=== PATIENT | male | born 1940 | race Caucasian/White ===

== ENCOUNTER 2023-07-16 06:02 | Day surgery (SDC) | payer MEDICARE, SELFPAY ==
[2023-07-11 13:05] VITALS: BMI 27.5
[2023-07-16] VITALS (9 sets, daily range): BP systolic 89–112; BP diastolic 52–65; BMI 27.4
--- NOTE | 2023-07-16 07:09 | ITS.CL.CATH ---
[facility] - Catheterization
Cardiac Catheterization
Procedure Report:
CARDIAC CATHETERIZATION REPORT
Date of Procedure: 07/16/2023
Referring: Juan Manuel Sanderson MD
Indication: Progressive exertional dyspnea
HEMODYNAMIC DATA (RHC performed at weight 145 lbs)
AO: 101/46
LV: 101/14
PCWP: 17
PA: 47/18
RV: 47/14
RA: 12
Oximetry: Ao 93%, PA 62%, cardiac output 3.6, cardiac index 2.2
LEFT VENTRICULOGRAPHY: Severe global hypokinesis with EF 31%
CORONARY ANGIOGRAPHY
Dominance: Right
Left Main: Normal
LAD: Complex 80-90% proximal LAD stenosis. The mid and distal LAD fill antegrade and via a patent ED graft. D1 is small. D2 is large and fills antegrade and via a patent vein graft.
Circumflex: Mild luminal irregularities
RCA: Dominant vessel with highly calcified 90% mid to distal stenosis just proximal to the crux. The PDA and large RPL fill antegrade and via a patent vein graft which touches down into the distal RCA
Bypass grafts:
1. The left internal mammary graft to the LAD is widely patent with excellent runoff. There is 30% touchdown stenosis.
2. The vein graft to the distal RCA is widely patent with excellent runoff
3. The vein graft to the second diagonal branch of the LAD is widely patent with excellent runoff
Closure Device: 6 [place] Angio-Seal RFA
Radiation (mGy): 457
DAP (cm2.Gy): 46.5
Fluoroscopy time: 11.3 minutes
CONCLUSIONS
1: Mildly elevated filling pressures with mild pulmonary hypertension
2: Global hypokinesis with EF 31%
3. [place] multivessel CAD as described with patent FARRAR-LAD, SVG-RCA, and SVG-D2 bypass grafts
4. Continue medical therapy for CAD and left ventricular dysfunction
Copy to: Juan Manuel Sanderson MD, Carlos Heredia,, DO
Eliseo Dhaliwal MD, FACC, [facility]
[2023-07-16] MEDS: TYLENOL 650 MG PO (08:53)
[2023-07-16] MEDS: NSS 1000 IV (08:55)
== END 2023-07-16 12:00 | disposition home or self-care (01) ==
LOC: CATH 06:02
PROVIDERS: ATTENDING PHYSICIAN Internal Medicine Cardiovascular Disease; FAMILY PHYSICIAN Internal Medicine; OTHER PHYSICIAN Internal Medicine Clinical Cardiac Electrophysiology
DX: I25.10 Atherosclerotic heart disease of native coronary artery without angina pectoris (principal); I27.20 Pulmonary hypertension, unspecified; I10 Essential (primary) hypertension; E78.5 Hyperlipidemia, unspecified; Z86.711 Personal history of pulmonary embolism; Z95.810 Presence of automatic (implantable) cardiac defibrillator; Z79.82 Long term (current) use of aspirin
CPT/HCPCS: 93461; C1760; C1894